=== PATIENT | female | born 1960 | race Caucasian/White ===

== ENCOUNTER 2022-05-27 20:07 | Emergency (ER) | payer OTHER, SELFPAY ==
[2022-05-27 20:08] VITALS: BP 138/73; PULSE 102; RESP 15; TEMP 36.7; O2SAT 95; BMI 40.7
--- NOTE | 2022-05-27 20:26 | ED.VIS.FALL ---
HPI HPI - Fall History of Present Illness Chief Complaint: Fall Informant: patient and family Narrative Narrative: Patient had a mechanical trip and fall earlier this evening. She fell on her leg and hand. She has a contusion to her anterior right knee and her right forearm. Nothing else hurts. She is able to walk. She did not hit her head. No anticoagulation. She has had a hip replacement but no pain in that area. She does have significant arthritis in the knee and is due for knee replacement. She also has some chronic numbness of the right leg due to surgery. This is not new or different. Pressing on the area makes it worse and rest makes it better. PFSH PFS Medical History Depression Hypertension Home Medications aripiprazole 2 mg tablet (Abilify) 2 mg PO DAILY 05/27/22 [History Last Taken Unknown] Allergy/AdvReac Type Severity Reaction Status Date / Time citalopram [From Celexa] AdvReac Rash Verified 05/27/22 20:13 Social History Smoking Status: Current every day smoker tobacco type: e-cigarettes ROS ROS ED Constitutional Constitutional ED: Denies chills or fever(s) Eyes Eyes: Denies change in vision Cardiovascular Cardiovascular: Denies chest pain Respiratory/Chest Respiratory/Chest: Denies cough or dyspnea Gastrointestinal Gastrointestinal: Denies nausea or vomiting Musculoskeletal Musculoskeletal: Reports arthralgias; Denies back pain or neck pain Integumentary Reports Abrasions Neurologic Neurologic: Denies headache(s), paresthesias or weakness Hematologic/Lymphatic Hematologic/Lymphatic: Denies easy bleeding or easy bruising Allergic/Immunologic Allergic/Immunologic ED: Denies urticaria EXAM Physical Exam Const Vital Signs: 05/27/22 20:08 05/27/22 20:35 Temperature 98.0 F Temperature Source Temporal Pulse Rate 102 H Respiratory Rate 15 Respiratory Effort Normal Non-Labored Respiratory Depth Normal Respiratory Pattern Normal Blood Pressure 138/73 H Blood Pressure Mean 94 Pulse Ox 95 Oxygen Delivery Method Room Air Positive well nourished and well developed General Appearance ED: well developed and NAD HEENT Reports normocephalic atraumatic Eyes EOMs intact bilaterally Neck full ROM General: Negative for tenderness Resp normal respiratory effort GI non-tender Back/Spine no CVA tenderness Extremity Extremity Narrative: There is contusion of the right forearm. No deformity noted. No tenderness in the hand or wrist. No tenderness shoulder. There is also a contusion and slight abrasion of the anterior right knee. No effusion noted. No deformity. She is able to bear weight. Neuro Sensorium / Orientation: alert Psych mental status grossly normal Skin Skin Narrative: Abrasion to right knee. MDM MDM MDM Narrative Medical decision making narrative: 4 view x-ray of her right knee and 2 view x-ray of the left forearm looked at by me and read by radiology shows no acute bony injury. Patient is comfortable going home using ice rest [id number] meds. Radiography Diagnostic Testing: Clinical Impression(s) from Imaging Studies Forearm X-Ray 05/27/22 20:35 IMPRESSION: Normal x-ray examination of the radius and ulna. Electronically Signed: Terrence Ramos MD at 21:03 EST , Knee X-Ray 05/27/22 20:35 IMPRESSION: No acute fracture or dislocation. Electronically Signed: Terrence Ramos MD at 21:03 EST , See above MDM Discharge Plan Triage Chief Complaint: Fall ED Provider: Bradford English Dx/Rx/DC Orders Clinical Impression: Fall from slip, trip, or stumble, Contusion of right knee, Contusion of forearm, right Instructions: ED Contusion, Lower Extremity, ED Contusion, Upper Extremity Prescriptions: No Action aripiprazole [Abilify] 2 mg Tablet 2 mg PO DAILY Primary Care Provider: Care Physician,No Primary Referrals: Town Doctor,Out of [Non-Staff] - 3-5 Days if not improving Disposition Disposition: Home, Self Care
--- NOTE | 2022-05-27 20:35 | RAD_ITS ---
STUDY: X-RAY - RIGHT RADIUS AND ULNA REASON FOR EXAM: Female, 62 years old. Trauma TECHNIQUE: 2 view(s) of the forearm. COMPARISON: None. FINDINGS: There is no demonstrated soft tissue swelling. Normal visualized radius. Normal visualized ulna. RAD/Forearm 2 Views IMPRESSION: Normal x-ray examination of the radius and ulna. Electronically Signed: Terrence Ramos MD at 21:03 EST ,
--- NOTE | 2022-05-27 20:35 | RAD_ITS ---
STUDY: X-RAY - RIGHT KNEE REASON FOR EXAM: Female, 62 years old. Trauma TECHNIQUE: 4 view(s) of the knee. COMPARISON: None. FINDINGS: Normal visualized distal femur. Normal visualized proximal tibia and fibula. Normal proximal tibiofibular articulation. 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 There is mild degenerative arthrosis of the lateral femorotibial compartment. There is mild degenerative arthrosis of the patellofemoral articulation. The soft tissue structures are unremarkable. RAD/Knee 4 or More Views IMPRESSION: No acute fracture or dislocation. Electronically Signed: Terrence Ramos MD at 21:03 EST ,
== END 2022-05-27 22:10 | disposition home or self-care (01) ==
PROVIDERS: Emergency Provider Emergency Medicine; Visit Provider Emergency Medicine
DX: S80.01XA Contusion of right knee, initial encounter (principal); S50.11XA Contusion of right forearm, initial encounter; F17.290 Nicotine dependence, other tobacco product, uncomplicated; W19.XXXA Unspecified fall, initial encounter
CPT/HCPCS: 73090; 73564; 99282